=== PATIENT | female | born 1960 ===

== ENCOUNTER 2020-03-09 09:23 | Outpatient (CLI) | payer OTHER | END 2020-03-09 09:31 | disposition home or self-care (01) | LOC: SONOGRAMA 09:23 | DX: E04.2 Nontoxic multinodular goiter (principal) ==

== ENCOUNTER → 2022-08-01 | Outpatient (CLI) | payer OTHER | END | disposition home or self-care (01) | LOC: SONOGRAMA 09:25 | PROVIDERS: ATTEND Pathology Anatomic Pathology & Clinical Pathology | DX: E04.2 Nontoxic multinodular goiter (principal); E04.1 Nontoxic single thyroid nodule ==